=== PATIENT | female | born 1975 | race Caucasian/White ===

== ENCOUNTER 2021-06-13 11:52 | Emergency (ER) | payer OTHER, SELFPAY ==
[2021-06-13] VITALS (16 sets, daily range): BP systolic 110–174; BP diastolic 69–104; PULSE 92–151; RESP 8–24; TEMP 36.1–36.6; O2SAT 95–100; BMI 23.0
--- NOTE | 2021-06-13 12:02 | DI.RAD.S_ITS ---
PROCEDURE: XR CHEST 1V INDICATIONS: chest pain TECHNIQUE: One view of the chest was acquired. COMPARISON: None. FINDINGS: Surgical changes and devices: There is cervical spine fixation hardware is partially seen. Cholecystectomy clips are seen. Lungs and pleura: Lungs are clear. No pleural effusions or pneumothorax. Mediastinum: Mediastinal contours appear normal. Heart size is normal. Bones and chest wall: No suspicious bony lesions. Overlying soft tissues appear unremarkable. IMPRESSION: No acute cardiopulmonary process is seen. Postoperative change is noted. Dictated by: John Paul Jimenez M.D. on 06/13/2021 at 11:27 Approved by: John Paul Jimenez M.D. on 06/13/2021 at 11:27
[2021-06-13 12:34] LABS: Add Manual Diff / Slide Review NO; Basophils Absolute Auto 200 /uL (0-100); Basophils Percent Auto 2.4 % (0-2); Eosinophils Absolute Auto 300 /uL (0-450); Eosinophils Percent Auto 4.4 % (2-4); Hematocrit 42.2 % (36-46); Hemoglobin 14.3 g/dL (12.0-16.0); Lymphocytes Absolute Auto 1400 /uL (1100-4500); Mean Corpuscular HGB Conc 33.9 % (30-36); Mean Corpuscular Volume 91.4 fL (80-100); Monocytes Absolute Auto 400 /uL (0-900); Monocytes Percent Auto 5.9 % (3-14); Neutrophils Absolute Auto 4100 /uL (1500-7000); Neutrophils Percent Auto 65.3 % (50-75); Platelet Count 293 X10^3/uL (150-400); Red Blood Cell Count 4.62 X10^6/uL (4.0-5.2); Red Cell Distribution Width 13.7 % (11.6-14.8); White Blood Cell Count 6.3 X10^3/uL (4.5-11.0)
[2021-06-13 12:40] LABS: Prothrombin Time 11.6 SECONDS (10.1-12.7)
[2021-06-13 12:43] LABS: PTT Partial Thromboplastin Tim 31 SECONDS (26.4-36.2)
[2021-06-13 12:47] LABS: Alanine Aminotransferase 19 IU/L (<35); Albumin 4.7 g/dL (3.5-5.0); Albumin Globulin Ratio 1.6 (1.0-2.8); Alkaline Phosphatase 44 U/L (38-126); Aspartate Aminotransferase 27 IU/L (14-36); BUN Creatinine Ratio 7.6 (6-22); Bilirubin Total 0.7 mg/dL (0.2-1.3); Blood Urea Nitrogen 6 mg/dL (7-17); Calcium 9.6 mg/dL (8.4-10.2); Carbon Dioxide 28 mmol/L (22-32); Chloride 105 mmol/L (98-107); Creatine Kinase 57 U/L (30-135); Estimated Glomerular Filt Rate > 60.0 mL/min (>60); Globulin 2.9 g/dL (1.7-4.1); Glucose 103 mg/dL (70-100); HEMOLYSIS 25 (0-50); Lipase 66 U/L (23-300); Magnesium 2.2 mg/dL (1.6-2.3); Potassium 4.2 mmol/L (3.4-5.1); Sodium 137 mmol/L (137-145); Total Protein 7.6 g/dL (6.3-8.2)
[2021-06-13 12:58] LABS: Troponin I < 0.012 ng/mL (0.01-0.034)
--- NOTE | 2021-06-13 13:18 | ED_ITS ---
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 Patient has a history of protein S deficiency and blood clots, states she has had orthopnea at night when she lays down and wheezing, she has been short of breath occasionally but tested negative before coming home on the . She sees Dr. Wesley with cardiology from [facility] and has a history of wearing a ZIO patch for 10 days and has a persistent heart rate of 1 10-120. Patient states that she checked her heart rate last night when she developed this severe pain approximately 24 hours ago and her heart rate was in the low 60s, her blood pressure was 90/70, she developed right arm and shoulder pain but states she has chronic neck pain from her cervical spine injury. She is not sure if it was trapezius pain or if this was related to her epigastric pain. S he states that her heart rate was in the low 60s for approximately 24 hours which is abnormal for her. Patient is not on any anticoagulants but has taken in the past. She has a protein S deficiency. Patient states that she has had episodes of tachycardia accompanied by chest pressure, she has had 2 in the emergency department today where she feels a wave pressure which lasts approximately 5 minutes, she states it feels like an elephant is sitting on her chest, she becomes diaphoretic and feel short of breath. Patient has a history of cholecystectomy. Related Data Home Medications Medication Instructions Recorded Confirmed Control Pill ( Control) 1 tab PO EVERY DAY #0 08/11/06 cyclobenzaprine 10 mg tablet #0 03/21/16 levothyroxine 175 mcg tablet 0.175 mg #0 03/21/16 (Levoxyl) norethindrone (contraceptive) 0.35 0.35 mg PO QDAY #0 03/21/16 mg tablet (Cathy-BE) oxycodone 10 mg tablet,crush #0 03/21/16 resistant,extended release 12 hr (OxyContin) Previous Rx's Medication Instructions Recorded famotidine 20 mg tablet (Pepcid) 20 mg PO DAILY #30 tab 06/13/21 levothyroxine 200 mcg capsule 200 mcg PO DAILY #30 cap 06/13/21 Allergies Allergy/AdvReac Type Severity Reaction Status Date / Time egg yolk [EGG YOLK] Allergy Severe ANAPHALAXIS Verified 06/13/21 11:59 lactase [From DAIRY AID] Allergy Severe ANAPHLAXIS Verified 06/13/21 11:59 ibuprofen [IBUPROFEN] Allergy Mild SWELLING Verified 06/13/21 11:59 IN FACE/THROAT methocarbamol [METHOCARBAMOL] Allergy Mild VOMITING Verified 06/13/21 11:59 morphine Allergy Verified 06/13/21 11:59 Review of Systems <MICHELLE Bautista - Last Filed: 06/13/21 17:50> Review of Systems Narrative: General: denies fever, chills, malaise, fatigue Head/Neck: denies headache, neck pain, dizziness Eyes: denies visual changes, eye pain Cardio: Endorses feeling epigastric pain and pressure currently 4/10, denies palpitations, edema Respiratory: denies dyspnea, cough, endorses orthopnea and wheezing when she lays down approximately 6 months GI: denies abdominal pain, nausea, vomiting, or diarrhea : denies dysuria, hematuria, urinary retention, frequency or incontinence MSK: denies joint pain, muscle weakness Skin: denies rash, itching, skin lesions or other Neuro: denies numbness, tingling Patient History <MICHELLE Bautista - Last Filed: 06/13/21 17:50> Social History Smoking Status: Unknown if ever smoked Smoking Status: Unknown if ever smoked alcohol intake frequency: holidays/special occasions only Substance Use Type: does not use Exam <MICHELLE Bautista - Last Filed: 06/13/21 17:50> Narrative Exam Narrative: Independently reviewed vitals signs and nursing notes. General: Cooperative, comfortable, in no acute distress, well developed and well groomed Head/Neck: Normal visual inspection and supple, atraumatic, no JVD or lymphadenopathy. Normal facial exam Eyes: Pupils equal round and reactive, EOMI, conjunctiva normal, no scleral icterus or injections Nose: External nose normal, nares patent, no rhinorrhea, without purulent drainage Mouth/Throat: uvula midline, moist mucus membranes Cardio: Sinus tachycardia, regular, S1-S2, no peripheral edema, warm extremities, no murmurs, gallops, rubs, normotensive Respiratory: Normal respiratory effort, able to speak in complete sentences without audible wheezing, stridor, or rales. No retractions. GI: Abdomen soft, tender to palpation in epigastrium/right upper quadrant, nondistended, no masses or exquisite tenderness with exam, no flank tenderness MSK: Moves all extremities, neurovascularly intact Skin: Normal capillary refill, no rash Neuro: Normal speech and cognition, normal gait, A&O x3, tone normal, moves all extremities Psych: Mental status is grossly normal, speech is clear, congruent mood, normal affect Initial Vital Signs Initial Vital Signs: Vital Signs Temperature 97.0 F L 06/13/21 11:59 Pulse Rate 132 H 06/13/21 11:59 Respiratory Rate 15 06/13/21 11:59 Blood Pressure 148/97 H 06/13/21 11:59 Pulse Oximetry 100 06/13/21 11:59 <Jonathan Scott DO - Last Filed: 06/13/21 17:53> Initial Vital Signs Initial Vital Signs: Vital Signs Temperature 97.0 F L 06/13/21 11:59 Pulse Rate 132 H 06/13/21 11:59 Respiratory Rate 15 06/13/21 11:59 Blood Pressure 148/97 H 06/13/21 11:59 Pulse Oximetry 100 06/13/21 11:59 Course <MICHELLE Bautista - Last Filed: 06/13/21 17:50> Course Course Narrative: Called to the patient's room at 2:10 p.m. with patient complaint of tachycardia, her heart rate went up to 145, she became diaphoretic, dizzy, and nervous. She was given 325 mg aspirin and 0.4 sublingual nitroglycerin. Call Follows her commercial artist and awaiting call back. Additional Information: 1430, called back to the patient's room for another episode of chest pressure with diaphoresis, tachycardia, no nausea vomiting but patient endorses feeling like an elephant is sitting on her chest. No hypoxia. Patient was given a 2nd dose of sublingual nitroglycerin which brought her chest pain down to a 3/10. Orders Ordered: ED Orders 06/13/21 12:02 XR chest 1V Stat EKG-12 Lead Stat 06/13/21 12:30 BNP [NT-proBNP (BNP-Adult 18+)] Stat Complete Blood Count AUTO DIFF Stat Comprehensive Metabolic Panel Stat D Dimer Stat Free T3, Triiodothyronine Free Stat Free T4, Direct Thyroxine Stat Lipase Stat Magnesium Stat Partial Thromboplastin Time Stat Prothrombin Time INR Stat TSH [Thyroid Stimulating Hormone] Stat Troponin & CK Cardiac Panel Stat 06/13/21 13:49 Covid-19 + FLU A/B + RSV - PCR Stat 06/13/21 14:44 Troponin & CK Cardiac Panel Stat 06/13/21 15:19 CT abdomen pelvis w con Stat Discontinued Medications Aspirin (Aspirin 325 Mg Tablet) 325 mg PO NOW ONE Stop: 06/13/21 14:11 Last Admin: 06/13/21 14:17 Dose: Not Given Documented by: EMI Al Hydrox/Mg Hydrox/Simethicone 20 ml/ Lidocaine HCl 15 ml 0 ml PO NOW ONE Stop: 06/13/21 16:42 Last Admin: 06/13/21 16:53 Dose: 35 ml Documented by: EMI Famotidine (Famotidine 20 Mg/2 Ml Vial) 20 mg IV NOW MONSERRAT Last Admin: 06/13/21 16:02 Dose: 20 mg Documented by: EMI Hydromorphone HCl (Hydromorphone 0.5 Mg Inj) 0.5 mg IV NOW ONE Stop: 06/13/21 15:20 Last Admin: 06/13/21 15:40 Dose: 0.5 mg Documented by: EMI Hydromorphone HCl (Hydromorphone 2 Mg Tablet) 2 mg PO NOW ONE Stop: 06/13/21 17:02 Last Admin: 06/13/21 17:08 Dose: 2 mg Documented by: ULYSSES Sodium Chloride (Normal Saline 0.9%) 1,000 mls @ 1,000 mls/hr IV BOLUS PRN PRN Reason: Fluid replacement Last Infusion: 06/13/21 17:10 Dose: 0 mls/hr Documented by: Admin: 06/13/21 16:02 Dose: 1,000 mls/hr Documented by: EMI Nitroglycerin (Nitroglycerin 0.4 Mg Sl Tab) 0.4 mg SL [id number] PRN PRN Reason: Chest Pain Last Admin: 06/13/21 14:25 Dose: 0.4 mg Documented by: Admin: 06/13/21 14:19 Dose: 0.4 mg Documented by: EMI Consultations Consultation #1: Page Dr. Merino for the 2nd time at 3:00 p.m., awaiting callback. Called back, discussed EKGs, patient's symptoms, he does not think this is cardiac in nature as her cardiac enzymes are not elevated, there is no ST changes on her EKGs, she has not had any evidence of hypoxia, D-dimer is negative, COVID/influenza A/B and RSV are all pending Vital Signs Vital signs: Vital Signs - 8 hr 06/13/21 11:59 06/13/21 12:16 06/13/21 12:30 Temperature 97.0 F L Pulse Rate 132 H 121 H 93 H Respiratory Rate 15 13 8 L Blood Pressure 148/97 H Pulse Oximetry 100 100 06/13/21 13:00 06/13/21 13:30 06/13/21 14:00 Temperature Pulse Rate 97 H 100 H 107 H Respiratory Rate 12 10 L 18 Blood Pressure Pulse Oximetry 98 100 99 06/13/21 14:08 06/13/21 14:24 06/13/21 14:30 Temperature Pulse Rate 137 H 151 H 131 H Respiratory Rate 24 20 14 Blood Pressure 174/104 H 133/78 Pulse Oximetry 100 98 98 06/13/21 14:38 06/13/21 15:00 06/13/21 15:30 Temperature Pulse Rate 109 H 113 H 98 H Respiratory Rate 12 24 13 Blood Pressure 122/69 119/76 110/69 Pulse Oximetry 99 95 96 06/13/21 16:00 06/13/21 16:01 06/13/21 16:30 Temperature Pulse Rate 102 H 101 H 92 H Respiratory Rate 16 13 Blood Pressure 114/82 111/76 Pulse Oximetry 98 98 99 06/13/21 17:00 Temperature 97.8 F Pulse Rate 92 H Respiratory Rate 15 Blood Pressure 136/90 Pulse Oximetry 99 <Jonathan Scott, DO - Last Filed: 06/13/21 17:53> Orders Ordered: ED Orders 06/13/21 12:02 XR chest 1V Stat EKG-12 Lead Stat 06/13/21 12:30 BNP [NT-proBNP (BNP-Adult 18+)] Stat Complete Blood Count AUTO DIFF Stat Comprehensive Metabolic Panel Stat D Dimer Stat Free T3, Triiodothyronine Free Stat Free T4, Direct Thyroxine Stat Lipase Stat Magnesium Stat Partial Thromboplastin Time Stat Prothrombin Time INR Stat TSH [Thyroid Stimulating Hormone] Stat Troponin & CK Cardiac Panel Stat 06/13/21 13:49 Covid-19 + FLU A/B + RSV - PCR Stat 06/13/21 14:44 Troponin & CK Cardiac Panel Stat 06/13/21 15:19 CT abdomen pelvis w con Stat Discontinued Medications Aspirin (Aspirin 325 Mg Tablet) 325 mg PO NOW ONE Stop: 06/13/21 14:11 Last Admin: 06/13/21 14:17 Dose: Not Given Documented by: EMI Al Hydrox/Mg Hydrox/Simethicone 20 ml/ Lidocaine HCl 15 ml 0 ml PO NOW ONE Stop: 06/13/21 16:42 Last Admin: 06/13/21 16:53 Dose: 35 ml Documented by: EMI Famotidine (Famotidine 20 Mg/2 Ml Vial) 20 mg IV NOW MONSERRAT Last Admin: 06/13/21 16:02 Dose: 20 mg Documented by: EMI Hydromorphone HCl (Hydromorphone 0.5 Mg Inj) 0.5 mg IV NOW ONE Stop: 06/13/21 15:20 Last Admin: 06/13/21 15:40 Dose: 0.5 mg Documented by: EMI Hydromorphone HCl (Hydromorphone 2 Mg Tablet) 2 mg PO NOW ONE Stop: 06/13/21 17:02 Last Admin: 06/13/21 17:08 Dose: 2 mg Documented by: ULYSSES Sodium Chloride (Normal Saline 0.9%) 1,000 mls @ 1,000 mls/hr IV BOLUS PRN PRN Reason: Fluid replacement Last Infusion: 06/13/21 17:10 Dose: 0 mls/hr Documented by: Admin: 06/13/21 16:02 Dose: 1,000 mls/hr Documented by: EMI Nitroglycerin (Nitroglycerin 0.4 Mg Sl Tab) 0.4 mg SL [id number] PRN PRN Reason: Chest Pain Last Admin: 06/13/21 14:25 Dose: 0.4 mg Documented by: Admin: 06/13/21 14:19 Dose: 0.4 mg Documented by: EMI Vital Signs Vital signs: Vital Signs - 8 hr 06/13/21 11:59 06/13/21 12:16 06/13/21 12:30 Temperature 97.0 F L Pulse Rate 132 H 121 H 93 H Respiratory Rate 15 13 8 L Blood Pressure 148/97 H Pulse Oximetry 100 100 06/13/21 13:00 06/13/21 13:30 06/13/21 14:00 Temperature Pulse Rate 97 H 100 H 107 H Respiratory Rate 12 10 L 18 Blood Pressure Pulse Oximetry 98 100 99 06/13/21 14:08 06/13/21 14:24 06/13/21 14:30 Temperature Pulse Rate 137 H 151 H 131 H Respiratory Rate 24 20 14 Blood Pressure 174/104 H 133/78 Pulse Oximetry 100 98 98 06/13/21 14:38 06/13/21 15:00 06/13/21 15:30 Temperature Pulse Rate 109 H 113 H 98 H Respiratory Rate 12 24 13 Blood Pressure 122/69 119/76 110/69 Pulse Oximetry 99 95 96 06/13/21 16:00 06/13/21 16:01 06/13/21 16:30 Temperature Pulse Rate 102 H 101 H 92 H Respiratory Rate 16 13 Blood Pressure 114/82 111/76 Pulse Oximetry 98 98 99 06/13/21 17:00 Temperature 97.8 F Pulse Rate 92 H Respiratory Rate 15 Blood Pressure 136/90 Pulse Oximetry 99 MDM - Chest Pain <MICHELLE Bautista - Last Filed: 06/13/21 17:50> Lab Data Result diagrams: 06/13/21 12:30 06/13/21 12:30 Labs: Lab Results 06/13/21 06/13/21 06/13/21 Range/Units 12:30 12:30 12:30 WBC 6.3 (4.5-11.0) X10^3/uL RBC 4.62 (4.0-5.2) X10^6/uL Hgb 14.3 (12.0-16.0) g/dL Hct 42.2 (36-46) % MCV 91.4 (80-100) fL MCH 31.0 (26-34) PG MCHC 33.9 (30-36) % RDW 13.7 (11.6-14.8) % Plt Count 293 (150-400) X10^3/uL Neut % (Auto) 65.3 (50-75) % Lymph % (Auto) 22.0 L (25-40) % Miner % (Auto) 5.9 (3-14) % Eos % (Auto) 4.4 H (2-4) % Baso % (Auto) 2.4 H (0-2) % Neut # (Auto) 4100 (4990-8681) /uL Lymph # (Auto) 1400 (2662-2319) /uL Miner # (Auto) 400 (0-900) /uL Eos # (Auto) 300 (0-450) /uL Baso # (Auto) 200 H (0-100) /uL PT 11.6 (10.1-12.7) SECONDS INR 1.0 (0.9-1.3) APTT 31 (26.4-36.2) SECONDS D-Dimer (<230) ng/mL Sodium 137 (137-145) mmol/L Potassium 4.2 (3.4-5.1) mmol/L Chloride 105 (98-107) mmol/L Carbon Dioxide 28 (22-32) mmol/L BUN 6 L (7-17) mg/dL Creatinine 0.79 (0.52-1.04) mg/dL Estimated GFR > 60.0 (>60) mL/min BUN/Creatinine Ratio 7.6 (6-22) Glucose 103 H (70-100) mg/dL Calcium 9.6 (8.4-10.2) mg/dL Magnesium 2.2 (1.6-2.3) mg/dL Total Bilirubin 0.7 (0.2-1.3) mg/dL AST 27 (14-36) IU/L ALT 19 (<35) IU/L Alkaline Phosphatase 44 (38-126) U/L Total Creatine Kinase 57 (30-135) U/L CK-MB (CK-2) TNP CK-MB (CK-2) Rel Index TNP Troponin I < 0.012 (0.01-0.034) ng/mL NT-Pro-B Natriuret Pep (<125) pg/mL Total Protein 7.6 (6.3-8.2) g/dL Albumin 4.7 (3.5-5.0) g/dL Globulin 2.9 (1.7-4.1) g/dL Albumin/Globulin Ratio 1.6 (1.0-2.8) Lipase 66 (23-300) U/L TSH (0.47-4.68) uIU/mL Free T4 (0.78-2.19) ng/dL Free T3 (2.77-5.27) pg/mL SARS-CoV-2 (PCR) (Negative) Influenza A (RT-PCR) (NEGATIVE) Influenza B (RT-PCR) (NEGATIVE) RSV (PCR) (Negative) 06/13/21 06/13/21 06/13/21 Range/Units 12:30 12:30 12:30 WBC (4.5-11.0) X10^3/uL RBC (4.0-5.2) X10^6/uL Hgb (12.0-16.0) g/dL Hct (36-46) % MCV (80-100) fL MCH (26-34) PG MCHC (30-36) % RDW (11.6-14.8) % Plt Count (150-400) X10^3/uL Neut % (Auto) (50-75) % Lymph % (Auto) (25-40) % Miner % (Auto) (3-14) % Eos % (Auto) (2-4) % Baso % (Auto) (0-2) % Neut # (Auto) (9576-6524) /uL Lymph # (Auto) (3971-7478) /uL Miner # (Auto) (0-900) /uL Eos # (Auto) (0-450) /uL Baso # (Auto) (0-100) /uL PT (10.1-12.7) SECONDS INR (0.9-1.3) APTT (26.4-36.2) SECONDS D-Dimer < 200 (<230) ng/mL Sodium (137-145) mmol/L Potassium (3.4-5.1) mmol/L Chloride (98-107) mmol/L Carbon Dioxide (22-32) mmol/L BUN (7-17) mg/dL Creatinine (0.52-1.04) mg/dL Estimated GFR (>60) mL/min BUN/Creatinine Ratio (6-22) Glucose (70-100) mg/dL Calcium (8.4-10.2) mg/dL Magnesium (1.6-2.3) mg/dL Total Bilirubin (0.2-1.3) mg/dL AST (14-36) IU/L ALT (<35) IU/L Alkaline Phosphatase (38-126) U/L Total Creatine Kinase (30-135) U/L CK-MB (CK-2) CK-MB (CK-2) Rel Index Troponin I (0.01-0.034) ng/mL NT-Pro-B Natriuret Pep 36 (<125) pg/mL Total Protein (6.3-8.2) g/dL Albumin (3.5-5.0) g/dL Globulin (1.7-4.1) g/dL Albumin/Globulin Ratio (1.0-2.8) Lipase (23-300) U/L TSH 17.8 H (0.47-4.68) uIU/mL Free T4 (0.78-2.19) ng/dL Free T3 (2.77-5.27) pg/mL SARS-CoV-2 (PCR) (Negative) Influenza A (RT-PCR) (NEGATIVE) Influenza B (RT-PCR) (NEGATIVE) RSV (PCR) (Negative) 06/13/21 06/13/21 06/13/21 Range/Units 12:30 13:49 14:44 WBC (4.5-11.0) X10^3/uL RBC (4.0-5.2) X10^6/uL Hgb (12.0-16.0) g/dL Hct (36-46) % MCV (80-100) fL MCH (26-34) PG MCHC (30-36) % RDW (11.6-14.8) % Plt Count (150-400) X10^3/uL Neut % (Auto) (50-75) % Lymph % (Auto) (25-40) % Miner % (Auto) (3-14) % Eos % (Auto) (2-4) % Baso % (Auto) (0-2) % Neut # (Auto) (5437-6264) /uL Lymph # (Auto) (4872-8897) /uL Miner # (Auto) (0-900) /uL Eos # (Auto) (0-450) /uL Baso # (Auto) (0-100) /uL PT (10.1-12.7) SECONDS INR (0.9-1.3) APTT (26.4-36.2) SECONDS D-Dimer (<230) ng/mL Sodium (137-145) mmol/L Potassium (3.4-5.1) mmol/L Chloride (98-107) mmol/L Carbon Dioxide (22-32) mmol/L BUN (7-17) mg/dL Creatinine (0.52-1.04) mg/dL Estimated GFR (>60) mL/min BUN/Creatinine Ratio (6-22) Glucose (70-100) mg/dL Calcium (8.4-10.2) mg/dL Magnesium (1.6-2.3) mg/dL Total Bilirubin (0.2-1.3) mg/dL AST (14-36) IU/L ALT (<35) IU/L Alkaline Phosphatase (38-126) U/L Total Creatine Kinase 55 (30-135) U/L CK-MB (CK-2) TNP CK-MB (CK-2) Rel Index TNP Troponin I < 0.012 (0.01-0.034) ng/mL NT-Pro-B Natriuret Pep (<125) pg/mL Total Protein (6.3-8.2) g/dL Albumin (3.5-5.0) g/dL Globulin (1.7-4.1) g/dL Albumin/Globulin Ratio (1.0-2.8) Lipase (23-300) U/L TSH (0.47-4.68) uIU/mL Free T4 0.81 (0.78-2.19) ng/dL Free T3 2.81 (2.77-5.27) pg/mL SARS-CoV-2 (PCR) Negative (Negative) Influenza A (RT-PCR) Flu a negative (NEGATIVE) Influenza B (RT-PCR) Flu b negative (NEGATIVE) RSV (PCR) Negative (Negative) Point of Care Testing Test Results Negative Urine Dip Bedside Urine Glucose Negative Bedside Urine Bilirubin - Negative Bedside Urine Ketone - Negative Urine Specific [place] 1.010 Bedside Urine Occult Blood - Negative Bedside Urine pH 7.0 Bedside Urine Protein - Negative Bedside Urine Urobilinogen - Negative Bedside Urine Nitrite - Negative Bedside Urine Leukocytes - Negative Esterase Imaging Data Chest x-ray: Radiologist's Impression: PROCEDURE:? XR CHEST 1V ? INDICATIONS:? chest pain ? TECHNIQUE:? One view of the chest was acquired.? ? COMPARISON:? None. ? FINDINGS:? ? Surgical changes and devices:? There is cervical spine fixation hardware is partially seen. Cholecystectomy clips are seen.? ? Lungs and pleura:? Lungs are clear.? No pleural effusions or pneumothorax.? ? Mediastinum:? Mediastinal contours appear normal.? Heart size is normal.? ? Bones and chest wall:? No suspicious bony lesions.? Overlying soft tissues appear unremarkable.? IMPRESSION:? ? No acute cardiopulmonary process is seen.? ? Postoperative change is noted. ? ? Dictated by: John Paul Jimenez M.D. on 06/13/2021 at 11:27 ? ? Approved by: John Paul Jimenez M.D. on 06/13/2021 at 11:27 ? ECG Data Interpretation: EKG reviewed by myself and Dr. Scott and reveals sinus tachycardia at 121 bpm with regular axis and intervals. No STEMI, ST segment changes, arrhythmia, or acute ischemic changes. 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 Patient states she has had this same type of pain before her cholecystectomy and she complains it is a 10/10 when it is at its worst, it comes and goes but is constant and dull at a lower level of pain. She denies any nausea vomiting associated with this, she endorses diaphoresis and chest pressure which goes along with it. She has not had any evidence of hypoxia, D-dimer is negative, CO VID/influenza A/B and RSV are all pending, no leukocytosis, INR is 1.0, creatinine of 0.79, total bili of 0.7, no elevation in liver enzymes, total CK, troponin, BNP, or lipase. Patient's TSH was found to be 17.8. Free T4 and T3 are pending. Patient has a history of Cruzito's thyroiditis, she takes 175 micro g of levothyroxine daily, states most recently her TSH was within normal range. She has not had any changes to this. Her COVID/influenza/RSV have all resulted negative. Two EKGs were obtained 2 hours apart, both showing sinus tachycardia without any ectopy, ST changes, or arrhythmia. These were reviewed by Dr. Merino from cardiology who reported that these were benign without any acute changes. She had 2 episodes of chest pressure with diaphoresis, tachycardia, and she feared syncope, stating pain was 10/10. She was given nitroglycerin sublingual, states that her pain improved, she was given 1 additional dose of that, her pain went down to a 3/10. She was given a full-s trength aspirin and Pepcid. Cardiology consult as stated above in general course. Patient's commercial artist is Dr. Wesley, patient understands to follow-up with Dr. Rodgers as an outpatient. CT abdomen pelvis was without any acute findings or explanation for her abdominal pain, there was a small volume of free pelvic fluid within physiologic normal limits. She did have mild hepatic steatosis without any hepatic mass. Chest x-ray shows no acute cardiopulmonary process, no pneumothorax or pleural effusion. Patient's TSH was elevated to 17.5, I increased her levothyroxine by 25 micro g up to 200 micro g daily. I presume her pain is related to gastritis or possible peptic ulcer, I prescribed her 20 mg of Pepcid daily and recommend she follow-up with her PCP for outpatient testing. Patient was given Dilaudid in the emergency department with improvement with her pain, she declined need for any additional pain medication as she has opioids at home for her chronic neck pain. Multiple causes of chest pain considered including OK, PE, pneumothorax, pneumonia, aortic dissection, and pleurisy. Patient reports no radiation, no diaphoresis, no provocation with exertion, and no vomiting. Patient is appropriate and amenable to discharge home. Vital signs are stable on repeat examination is unremarkable. Patient has been informed of results. Patient has been given strict return to ER precautions for any new or worsening symptoms. Patient understands to follow up closely with outpatient providers as instructed. Patient understands plan and agrees to discharge home. All questions and concerns answered at this time. <Jonathan Scott, DO - Last Filed: 06/13/21 17:53> Lab Data Labs: Lab Results 06/13/21 06/13/21 06/13/21 Range/Units 12:30 12:30 12:30 WBC 6.3 (4.5-11.0) X10^3/uL RBC 4.62 (4.0-5.2) X10^6/uL Hgb 14.3 (12.0-16.0) g/dL Hct 42.2 (36-46) % MCV 91.4 (80-100) fL MCH 31.0 (26-34) PG MCHC 33.9 (30-36) % RDW 13.7 (11.6-14.8) % Plt Count 293 (150-400) X10^3/uL Neut % (Auto) 65.3 (50-75) % Lymph % (Auto) 22.0 L (25-40) % Miner % (Auto) 5.9 (3-14) % Eos % (Auto) 4.4 H (2-4) % Baso % (Auto) 2.4 H (0-2) % Neut # (Auto) 4100 (0306-9389) /uL Lymph # (Auto) 1400 (8997-9842) /uL Miner # (Auto) 400 (0-900) /uL Eos # (Auto) 300 (0-450) /uL Baso # (Auto) 200 H (0-100) /uL PT 11.6 (10.1-12.7) SECONDS INR 1.0 (0.9-1.3) APTT 31 (26.4-36.2) SECONDS D-Dimer (<230) ng/mL Sodium 137 (137-145) mmol/L Potassium 4.2 (3.4-5.1) mmol/L Chloride 105 (98-107) mmol/L Carbon Dioxide 28 (22-32) mmol/L BUN 6 L (7-17) mg/dL Creatinine 0.79 (0.52-1.04) mg/dL Estimated GFR > 60.0 (>60) mL/min BUN/Creatinine Ratio 7.6 (6-22) Glucose 103 H (70-100) mg/dL Calcium 9.6 (8.4-10.2) mg/dL Magnesium 2.2 (1.6-2.3) mg/dL Total Bilirubin 0.7 (0.2-1.3) mg/dL AST 27 (14-36) IU/L ALT 19 (<35) IU/L Alkaline Phosphatase 44 (38-126) U/L Total Creatine Kinase 57 (30-135) U/L CK-MB (CK-2) TNP CK-MB (CK-2) Rel Index TNP Troponin I < 0.012 (0.01-0.034) ng/mL NT-Pro-B Natriuret Pep (<125) pg/mL Total Protein 7.6 (6.3-8.2) g/dL Albumin 4.7 (3.5-5.0) g/dL Globulin 2.9 (1.7-4.1) g/dL Albumin/Globulin Ratio 1.6 (1.0-2.8) Lipase 66 (23-300) U/L TSH (0.47-4.68) uIU/mL Free T4 (0.78-2.19) ng/dL Free T3 (2.77-5.27) pg/mL SARS-CoV-2 (PCR) (Negative) Influenza A (RT-PCR) (NEGATIVE) Influenza B (RT-PCR) (NEGATIVE) RSV (PCR) (Negative) 06/13/21 06/13/21 06/13/21 Range/Units 12:30 12:30 12:30 WBC (4.5-11.0) X10^3/uL RBC (4.0-5.2) X10^6/uL Hgb (12.0-16.0) g/dL Hct (36-46) % MCV (80-100) fL MCH (26-34) PG MCHC (30-36) % RDW (11.6-14.8) % Plt Count (150-400) X10^3/uL Neut % (Auto) (50-75) % Lymph % (Auto) (25-40) % Miner % (Auto) (3-14) % Eos % (Auto) (2-4) % Baso % (Auto) (0-2) % Neut # (Auto) (8989-3755) /uL Lymph # (Auto) (7125-0033) /uL Miner # (Auto) (0-900) /uL Eos # (Auto) (0-450) /uL Baso # (Auto) (0-100) /uL PT (10.1-12.7) SECONDS INR (0.9-1.3) APTT (26.4-36.2) SECONDS D-Dimer < 200 (<230) ng/mL Sodium (137-145) mmol/L Potassium (3.4-5.1) mmol/L Chloride (98-107) mmol/L Carbon Dioxide (22-32) mmol/L BUN (7-17) mg/dL Creatinine (0.52-1.04) mg/dL Estimated GFR (>60) mL/min BUN/Creatinine Ratio (6-22) Glucose (70-100) mg/dL Calcium (8.4-10.2) mg/dL Magnesium (1.6-2.3) mg/dL Total Bilirubin (0.2-1.3) mg/dL AST (14-36) IU/L ALT (<35) IU/L Alkaline Phosphatase (38-126) U/L Total Creatine Kinase (30-135) U/L CK-MB (CK-2) CK-MB (CK-2) Rel Index Troponin I (0.01-0.034) ng/mL NT-Pro-B Natriuret Pep 36 (<125) pg/mL Total Protein (6.3-8.2) g/dL Albumin (3.5-5.0) g/dL Globulin (1.7-4.1) g/dL Albumin/Globulin Ratio (1.0-2.8) Lipase (23-300) U/L TSH 17.8 H (0.47-4.68) uIU/mL Free T4 (0.78-2.19) ng/dL Free T3 (2.77-5.27) pg/mL SARS-CoV-2 (PCR) (Negative) Influenza A (RT-PCR) (NEGATIVE) Influenza B (RT-PCR) (NEGATIVE) RSV (PCR) (Negative) 06/13/21 06/13/21 06/13/21 Range/Units 12:30 13:49 14:44 WBC (4.5-11.0) X10^3/uL RBC (4.0-5.2) X10^6/uL Hgb (12.0-16.0) g/dL Hct (36-46) % MCV (80-100) fL MCH (26-34) PG MCHC (30-36) % RDW (11.6-14.8) % Plt Count (150-400) X10^3/uL Neut % (Auto) (50-75) % Lymph % (Auto) (25-40) % Miner % (Auto) (3-14) % Eos % (Auto) (2-4) % Baso % (Auto) (0-2) % Neut # (Auto) (3939-7740) /uL Lymph # (Auto) (9263-2158) /uL Miner # (Auto) (0-900) /uL Eos # (Auto) (0-450) /uL Baso # (Auto) (0-100) /uL PT (10.1-12.7) SECONDS INR (0.9-1.3) APTT (26.4-36.2) SECONDS D-Dimer (<230) ng/mL Sodium (137-145) mmol/L Potassium (3.4-5.1) mmol/L Chloride (98-107) mmol/L Carbon Dioxide (22-32) mmol/L BUN (7-17) mg/dL Creatinine (0.52-1.04) mg/dL Estimated GFR (>60) mL/min BUN/Creatinine Ratio (6-22) Glucose (70-100) mg/dL Calcium (8.4-10.2) mg/dL Magnesium (1.6-2.3) mg/dL Total Bilirubin (0.2-1.3) mg/dL AST (14-36) IU/L ALT (<35) IU/L Alkaline Phosphatase (38-126) U/L Total Creatine Kinase 55 (30-135) U/L CK-MB (CK-2) TNP CK-MB (CK-2) Rel Index TNP Troponin I < 0.012 (0.01-0.034) ng/mL NT-Pro-B Natriuret Pep (<125) pg/mL Total Protein (6.3-8.2) g/dL Albumin (3.5-5.0) g/dL Globulin (1.7-4.1) g/dL Albumin/Globulin Ratio (1.0-2.8) Lipase (23-300) U/L TSH (0.47-4.68) uIU/mL Free T4 0.81 (0.78-2.19) ng/dL Free T3 2.81 (2.77-5.27) pg/mL SARS-CoV-2 (PCR) Negative (Negative) Influenza A (RT-PCR) Flu a negative (NEGATIVE) Influenza B (RT-PCR) Flu b negative (NEGATIVE) RSV (PCR) Negative (Negative) Point of Care Testing Test Results Negative Urine Dip Bedside Urine Glucose Negative Bedside Urine Bilirubin - Negative Bedside Urine Ketone - Negative Urine Specific [place] 1.010 Bedside Urine Occult Blood - Negative Bedside Urine pH 7.0 Bedside Urine Protein - Negative Bedside Urine Urobilinogen - Negative Bedside Urine Nitrite - Negative Bedside Urine Leukocytes - Negative Esterase Discharge Plan Departure Patient Disposition: Home Clinical Impression: Acute epigastric pain, Elevated TSH Instructions: Hypothyroidism, DI for Atypical Chest Pain, DI for Epigastric Pain, DI for Hypothyroidism, Cruzito Thyroiditis Activity Restrictions/Additional Instructions: *You have been diagnosed with epigastric pain without a clear cause. Your CT abdomen pelvis did not show any liver mass, normal size of pancreatic duct without any inflammatory changes or fluid, spleen, adrenal glands, and kidneys appear normal. No abnormally dilated or thickened loop of bowel. No enlarged intra-abdominal, pelvic, or groin lymph nodes. Small volume free pelvic fluid within a normal limit. Normal appearance of the uterus and ovaries with IUD in place. There are no acute findings or explanation for your abdominal pain on your CT or lab work. You do not have an elevated white blood cell count, year coagulation studies are normal without any elevation in D-dimer. Creatinine is normal, a marker for your kidney function. Your liver enzymes are normal, no elevation in your cardiac enzymes or your BNP which is a marker for heart failure. Your TSH is markedly elevated at 17.8. 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 Please follow-up with your primary care provider for this, you may need thyroid medication in the future. I hope that you start feeling better, please follow-up with Dr. iKm as soon as you are able. I have increased your levothyroxine to 200 mcg, please start taking this daily, please also start taking your Pepcid 20 mg daily but take these medications at least 1 hour apart. *What to do: *Please continue to take your regular medications as directed. [ x] New medication prescriptions sent to your pharmacy: [[facility] ] [ ] New medication written as a paper prescription [ ] No new medications given *Please follow up with your primary care provider in 2-3 days, call for an appointment. Let them know you were seen in the Emergency Department and that we ask that you be seen in follow up. We will electronically transmit a record of today's note if your PCP is in our system *If you do not have a primary care provider please contact the [facility] Resource line at [phone]. They will ask some questions about your medical history and help get you set up with a doctor in the community. *Return to Emergency Department if you should have any new, worsening or concerning symptoms, such as [fever greater than 101F, chills, worsening pain, persistent vomiting or other bothersome symptoms] Prescriptions: New levothyroxine 200 mcg capsule 200 mcg PO DAILY Qty: 30 0RF famotidine [Pepcid] 20 mg tablet 20 mg PO DAILY Qty: 30 0RF No Action Control Pill ( Control) 1 tab PO EVERY DAY Qty: 0 0RF oxycodone [OxyContin] 10 MG tablet,oral only,ext.rel.12 hr Qty: 0 0RF cyclobenzaprine 10 MG tablet Qty: 0 0RF levothyroxine [Levoxyl] 175 MCG tablet 0.175 mg Qty: 0 0RF norethindrone (contraceptive) [Cathy-BE] 0.35 MG tablet 0.35 mg PO QDAY Qty: 0 0RF Referrals: Dori Kim DO [Primary Care Provider] - <Jonathan Scott DO - Last Filed: 06/13/21 17:53> Cosign ED Attending Cosnoéature Attestation: Dr Scott Co-Sign Statement: I was available for consultation during this patient's emergency department visit. This chart is signed by myself for administrative purposes only. I did not have direct contact with this patient during this visit. They were seen independently by the APC.
[2021-06-13 13:36] LABS: D Dimer < 200 ng/mL (<230)
[2021-06-13 13:46] LABS: NT-proBNP (BNP-Adult 18+) 36 pg/mL (<125)
[2021-06-13] MEDS: ASPIRIN 81 MG CHEW TAB 324 MG (14:18)
[2021-06-13] MEDS: NITROGLYCERIN 0.4 MG SL TAB SL ×2 (14:19→14:25)
--- NOTE | 2021-06-13 14:26 | PC.NURSE ---
Addendum entered by Dayami Chester R.N. 06/13/21 14:38: Pt reporting chest pain now a 3, HR 99 bpm Original Note: Patient put connie cleaner light, this RN responded, pt c/o feeling like she was going to pass out, HR 154 BPM. Provider to bedside immediately, placed in slight trendelenburg. BP 133/78 at time of event, never lost consciousness.
[2021-06-13 15:00] LABS: Creatine Kinase 55 U/L (30-135)
[2021-06-13 15:13] LABS: Troponin I < 0.012 ng/mL (0.01-0.034)
--- NOTE | 2021-06-13 15:19 | DI.CT.S_ITS ---
PROCEDURE: CT ABDOMEN PELVIS W CON INDICATIONS: epigastric pain TECHNIQUE: After the administration of intravenous contrast, axial sections acquired from the lung bases to the pubic symphysis. Coronal and sagittal reformats were performed. For radiation dose reduction, the following was used: automated exposure control, adjustment of mA and/or kV according to patient size. COMPARISON: None. FINDINGS: Included portions of the lung bases are clear. Cholecystectomy. Mild dilatation of the intrahepatic and extrahepatic biliary ducts is presumably post cholecystectomy reservoir phenomenon. Mild hepatic steatosis. No focal hepatic mass. Normal caliber of the pancreatic duct with normal appearance of the pancreatic parenchyma. No peripancreatic inflammatory changes or fluid. Spleen, adrenal glands, and kidneys are normal. No abnormally dilated or thickened loop of bowel. No pericolonic or mesenteric inflammatory changes. Nonaneurysmal abdominal aorta. No threshold enlarged intra-abdominal, retroperitoneal, pelvic, or inguinal lymph node. Small volume free pelvic fluid, within physiologic normal limits. Normal appearance of the uterus and ovaries. IUD noted. Urinary bladder unremarkable. No acute or suspicious osseous lesion. IMPRESSION: No acute finding or explanation for abdominal pain Dictated by: Kai Leyva M.D. on 06/13/2021 at 16:06 Approved by: Kai Leyva M.D. on 06/13/2021 at 16:08
[2021-06-13] MEDS: HYDROMORPHONE 0.5 MG INJ IV (15:40)
[2021-06-13 15:52] LABS: Influenza A - CEPHEID Flu A NEGATIVE (NEGATIVE); Influenza B - CEPHEID Flu B NEGATIVE (NEGATIVE); Respiratory Syncytial Virus Negative (Negative)
[2021-06-13 15:53] LABS: COVID-19 CEPHEID PCR (VTM/NP) Negative (Negative)
[2021-06-13] MEDS: SODIUM CHLORIDE 0.9% 1,000 ML 1000 ML IV (16:02)
[2021-06-13] MEDS: FAMOTIDINE 20 MG/2 ML VIAL IV (16:02)
[2021-06-13 16:43] LABS: Thyroid Stimulating Hormone 17.8 uIU/mL (0.47-4.68)
[2021-06-13] MEDS: MAG HYDROX/ALUMINUM/SIMETH SUS 20 ML, LIDOCAINE VISCOUS 2% 15 ML PO (16:53)
[2021-06-13] MEDS: HYDROMORPHONE 2 MG TABLET PO (17:08)
[2021-06-13 17:45] LABS: Free T3, Triiodothyronine Free 2.81 pg/mL (2.77-5.27); Free T4, Direct Thyroxine 0.81 ng/dL (0.78-2.19)
== END 2021-06-13 17:18 | disposition home or self-care (01) ==
PROVIDERS: Emergency Medicine; Emergency Provider Nurse Practitioner Critical Care Medicine; Family Provider Family Medicine; PCP Family Medicine
DX: R10.13 Epigastric pain (principal); R94.6 Abnormal results of thyroid function studies; Z20.822 Contact with and (suspected) exposure to COVID-19
CPT/HCPCS: 0241U; 36415; 71045; 74177; 80053; 81003; 81025; 82550; 83690; 83735; 83880; 84439; 84443; 84481; 84484; 85025; 85379; 85610; 85730; 93005; 96361; 96374; 96375; 99284; J1170; Q9967

== ENCOUNTER → 2021-08-30 09:37 | Outpatient (CLI) | payer OTHER, SELFPAY ==
--- NOTE | 2021-08-30 | DI.MRI.S_ITS ---
PROCEDURE: MR CERVICAL SPINE WO CON INDICATIONS: Arthrodesis status TECHNIQUE: Noncontrast sagittal T1 spin echo and T2 fast spin echo, sagittal STIR, foraminal oblique sagittal T2 fast spin echo, and axial gradient echo or T2 fast spin echo through the cervical spine. COMPARISON: None. FINDINGS: Image quality: There is artifact associated with the metallic hardware. Alignment and Curvature: There is normal bony alignment. Bone Marrow: Marrow demonstrates normal overall signal. Note is made of at least moderate fluid within left mastoid air cells. Spinal Cord: At the C5-C6 level, there is abnormally increased T2 weighted signal involving the left aspect of the spinal cord, as on series 4, image 25 and on series 5, image 9. Mild thinning of the spinal cord can be seen within this region. Visualized spinal cord otherwise has normal size and signal. No cerebellar tonsillar herniation. Paraspinous Soft Tissues: No paravertebral masses. Prevertebral soft tissues are normal in thickness. Extensive postoperative changes are seen, with posterior hardware spanning from C4 through C7. There has been corpectomy with strut graft involving C5 and C6, spanning from C4 through C7. There has been removal of portions of the posterior elements. C2-C3: The disc height is well-preserved. Loss of disc signal is seen at this level. Mild facet joint hypertrophy is seen. Minimal to mild bilateral neural foraminal narrowing can be seen. No significant central canal narrowing is seen. C3-C4: The disc height is well-preserved. Loss of disc signal is seen at this level. A mild degree of generalized disc osteophyte complex is seen. Mild facet joint hypertrophy is seen. Mild to moderate bilateral neural foraminal narrowing can be seen. No significant central canal narrowing is seen. C4-C5: Vkpt-[id number] disc osteophyte complex is seen. Mild to moderate bilateral neural foraminal narrowing can be seen. No central canal narrowing is seen. C5-C6: Likely mild bilateral neural foraminal narrowing can be seen. The central canal is widely patent. C6-C7: A mild degree of generalized disc osteophyte complex is seen. Mild bilateral neural foraminal narrowing is seen. The central canal is widely patent. C7-T1: A mild degree of generalized disc osteophyte complex is seen. Mild facet joint hypertrophy is seen. Mild bilateral neural foraminal narrowing is seen. Mild central canal narrowing is seen. IMPRESSION: Extensive postoperative hardware can be seen, with associated susceptibility artifact. Abnormal signal can be seen within the left aspect of the spinal cord at the C5-C6 level, with associated volume loss within this region. This is believed to be related to a remote spinal cord injury. Multiple levels of degenerative change can be seen. Left mastoid air cell fluid is incidentally noted. Please correlate with potential clinical findings of mastoiditis. Dictated by: John Paul Jimenez M.D. on 08/30/2021 at 10:08 Approved by: John Paul Jimenez M.D. on 08/30/2021 at 10:14
== END ==
PROVIDERS: Family Provider Family Medicine; PCP Family Medicine; Referring Provider Neurological Surgery; Visit Provider Neurological Surgery
DX: Z98.1 Arthrodesis status (principal); M47.812 Spondylosis without myelopathy or radiculopathy, cervical region
CPT/HCPCS: 72141

== ENCOUNTER → 2021-12-14 11:36 | Outpatient (CLI) | payer OTHER, SELFPAY ==
--- NOTE | 2021-12-14 11:38 | DI.CT.S_ITS ---
PROCEDURE: CT CHEST HIGH RESOLUTION INDICATIONS: Shortness of breath TECHNIQUE: Noncontrast 1.0 and 5.0 mm thick contiguous axial sections from the pulmonary apex to the posterior costophrenic angles, with 7 mm thick coronal and sagittal MIP reformats. 1 mm thick dynamic expiratory images acquired through the upper, mid, and lower lungs. 1.0 mm thick axial sections acquired from the tracie to the posterior costophrenic angles in the prone end-inspiration position. For radiation dose reduction, the following was used: automated exposure control, adjustment of mA and/or kV according to patient size. COMPARISON: [facility], CT, CT ABDOMEN PELVIS W CON, 06/13/2021, 15:44. [facility], CR, XR CHEST 1V, 06/13/2021, 12:15. FINDINGS: Image quality: Excellent. Lungs: There is no focal consolidation. The central tracheobronchial tree is patent. There is no significant air trapping. No significant interstitial findings. A few small interstitial lymph nodes are noted. 2-3 mm lower lobe nodules are noted within the right lower lobe (series 11, image 144) and in the left lower low (series 11, image 188). Pleura: No pleural effusions or pneumothorax. Mediastinum: Heart size is normal. No pericardial effusion. Thoracic aorta and central pulmonary arteries are normal in size. Esophagus is normal in caliber. Bones and chest wall: No suspicious bony lesions. No vertebral body compression fractures. Abdomen: Visualized upper abdominal solid organs and bowel loops appear normal. IMPRESSION: Unremarkable CT chest without findings to explain shortness of breath. 2-3 mm lower lobe nodules which require no further evaluation if patient is low risk for lung malignancy. Consider CT chest in 1 year if patient is high risk. Dictated by: Esau Lea D.O. on 12/14/2021 at 15:44 Approved by: Esau Lea D.O. on 12/14/2021 at 15:51
== END ==
PROVIDERS: Family Provider Family Medicine; PCP Nurse Practitioner Family; Referring Provider Internal Medicine Pulmonary Disease; Visit Provider Internal Medicine Pulmonary Disease
DX: R06.02 Shortness of breath (principal); R91.8 Other nonspecific abnormal finding of lung field
CPT/HCPCS: 71250

== ENCOUNTER → 2022-10-07 11:45 | Outpatient (CLI) | payer MEDICARE, SELFPAY ==
--- NOTE | 2022-10-07 11:48 | DI.RAD.S_ITS ---
PROCEDURE: XR ELBOW LT MIN 3V INDICATIONS: 2 month pain of lateral epicondyle vs radial head TECHNIQUE: 3 views of the elbow were acquired. COMPARISON: None. FINDINGS: Bones: No fractures or dislocations. No suspicious bony lesions. Soft tissues: No elbow joint effusion. No suspicious soft tissue calcifications. IMPRESSION: Unremarkable radiographic examination of left elbow. If indicated, MRI of elbow can be done for evaluation of internal derangement. Dictated by: Carroll Cifuentes M.D. on 10/07/2022 at 17:21 Approved by: Carroll Cifuentes M.D. on 10/07/2022 at 17:22
== END ==
PROVIDERS: Family Provider Family Medicine; PCP Nurse Practitioner Family; Referring Provider Physician Assistant; Visit Provider Urology
DX: M25.522 Pain in left elbow (principal)
CPT/HCPCS: 73080